=== PATIENT | male | born 1960 | race African-American/Black ===

== ENCOUNTER 2017-02-11 16:58 | Emergency (ER) | payer MEDICAID ==
[2017-02-11] MEDS ORDERED: KETOROLAC TROMETHAMINE 60 MG/2 ML SDV IM ONE (18:42)
[2017-02-11] MEDS ORDERED: OXYCODONE-ACETAMINOPHEN 5-325 MG TABLET PO ONE (18:42)
--- NOTE | 2017-02-11 19:19 | RADIOLOGY REPORT (SQ) ---
EXAM DESCRIPTION: L SPINE WHOLE COMPLETED DATE/TIME: 02/11/2017 7:10 pm REASON FOR STUDY: low back pain COMPARISON: 10/30/2014. NUMBER OF VIEWS: Five views including obliques. TECHNIQUE: AP, lateral, oblique, and sacral radiographic images acquired of the lumbar spine. LIMITATIONS: None. FINDINGS: MINERALIZATION: Normal. SEGMENTATION: Normal. No transitional anatomy. ALIGNMENT: Normal. VERTEBRAE: Maintained height. No fracture or worrisome bone lesion. DISCS: Mild disc space narrowing with small osteophytes. POSTERIOR ELEMENTS: Pedicles and facets are intact. No pars defect or posterior arch defects. HARDWARE: None in the spine. PARASPINAL SOFT TISSUES: Normal. PELVIS: Intact as visualized. No fractures or worrisome bone lesions. SI joints intact. OTHER: No other significant finding. IMPRESSION: MILD DEGENERATIVE CHANGES. NO ACUTE FINDINGS. TECHNICAL DOCUMENTATION: JOB ID: [id number]- All Rights Reserved
--- NOTE | 2017-02-11 21:14 | ER Document Report ---
ED General - General Stated Complaint: BACK PAIN Time Seen by Provider: 02/11/17 18:33 Mode of Arrival: Ambulatory Information source: Patient, Relative Notes: Patient is a 56-year-old black male comes emergency room complaining of low back pain. 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 Over the course of 24 hours he got slightly little worse and any time patient attempts to bend over or walk long periods of time or standing periods of time he has increased amount of discomfort. He also has discomfort going from laying down to sitting up. Patient denies any loss of urine or stool he has had a history of back problems in the past he was in pain management up until 2 years ago. Patient states he stopped pain management on his own because he started feeling much better. Patient denies any other medical problems with the exception of hypertension. Patient also comes in with a complaint of a rash on the left side of his body. He states that this occurred about the same time as the back and that he thought a bug bit him but it has gotten to be more painful and pruritic and is staying only on one side of the body. Patient denies having history of shingles in the past. TRAVEL OUTSIDE OF THE [place] IN LAST 30 DAYS: No - HPI Patient complains to provider of: Bug bite and back pain Onset/Duration: Sudden - week Quality of pain: Burning, Cramping, Sharp, Throbbing Severity: Moderate Pain Level: 3 Associated symptoms: Body/muscle aches Exacerbated by: Sitting, Standing, Movement, Walking Relieved by: Denies Similar symptoms previously: Yes Recently seen / treated by doctor: No - Related Data Allergies/Adverse Reactions: No Known Allergies Allergy (Verified 02/11/17 17:02) Past Medical History - General Information source: Patient, Relative - Social History Smoking Status: Current Every Day Smoker Cigarette use (# per day): Yes - 1ppd Chew tobacco use (# tins/day): No Smoking Education Provided: Yes Frequency of alcohol use: None Drug Abuse: None Lives with: Family Family History: Reviewed & Not Pertinent Patient has suicidal ideation: No Patient has homicidal ideation: No Renal/ Medical History: Denies: Hx Peritoneal Dialysis - Immunizations Hx Diphtheria, Pertussis, Tetanus Vaccination: Yes Review of Systems - Review of Systems Constitutional: No symptoms reported EENT: No symptoms reported Cardiovascular: No symptoms reported Respiratory: No symptoms reported Gastrointestinal: No symptoms reported Genitourinary: No symptoms reported Male Genitourinary: No symptoms reported Musculoskeletal: Back pain Skin: Rash Hematologic/Lymphatic: No symptoms reported Neurological/Psychological: No symptoms reported -: Yes All other systems reviewed and negative Physical Exam - Vital signs Vitals: Temp Pulse Resp BP Pulse Ox 98.8 F 87 18 134/81 H 94 02/11/17 17:06 02/11/17 17:06 02/11/17 17:06 02/11/17 17:06 02/11/17 17:06 Interpretation: Hypertensive - General General appearance: Alert - Uncomfortable appearing - Respiratory Respiratory status: No respiratory distress Chest status: Nontender Breath sounds: Normal. No: Decreased air movement, Nonproductive cough, Productive cough, Rales, Rhonchi, Stridor, Wheezing, Other - Cardiovascular Rhythm: Regular Heart sounds: Normal auscultation Murmur: No - Back Back: Normal, Tender, Vertebra tenderness, Other - Examination of the lumbar spine shows a good vascular exam. Physical testing shows reproducable tenderness to palpation around L3 L4. Good DTR's. Positive straight leg raises on left to 20 degrees right normal.. No: Nontender, Deformity/step-off, CVA tenderness, Scars, Scoliosis, Wounds - Extremities General upper extremity: Normal inspection, Normal strength General lower extremity: Normal inspection, Normal strength - Skin Skin Temperature: Warm Skin irregularity: Rash Character of irregularity: Maculopapular, Patchy, Other - Examination patient's rash on the left side of his body follows along the dermatome line. Is patchy and also has maculopapular clear clear papules. There is also areas that started to try and patient is excoriated and secondary cellulitis is also begun. Course - Vital Signs Vital signs: Temp Pulse Resp BP Pulse Ox 97.8 F 72 18 136/87 H 93 02/11/17 21:26 02/11/17 21:26 02/11/17 17:06 02/11/17 21:26 02/11/17 21:26 - Diagnostic Test Radiology reviewed: Reports reviewed - No acute findings - Transfer of Care Notes: 02/15/17 12:58 Patient appeared to have a good case of shingles left side. He has also scratched at the area and has caused a secondary infrction. Discharge - Discharge Clinical Impression: Lumbosacral strain Qualifiers: Encounter type: initial encounter Qualified Code(s): S39.012A - Strain of muscle, fascia and tendon of lower back, initial encounter Shingles Qualifiers: Herpes zoster complications: with other complications Qualified Code(s): B02.8 - Zoster with other complications Cellulitis Qualifiers: Site of cellulitis: trunk Site of cellulitis of trunk: chest wall Qualified Code(s): L03.313 - Cellulitis of chest wall Condition: Good Disposition: HOME, SELF-CARE Instructions: Ice Packs ([facility]), Low Back Pain ([facility]), Muscle Relaxers ([facility]), Muscle Strain ([facility]), Oral Narcotic Medication ([facility]), Shingles ([facility]), Warm Packs ([facility]) Additional Instructions: Home and rest. Ice to the low back 3 times a day. Medication as prescribed. He may also attempt to take ibuprofen 803 times a day with food. At this point since you have a history of low back problems I highly recommend following up with her orthopedic doctor. Since this is possibly a reoccurrence of an old injury may benefit to have a repeated MRI in the next week or so. Remember that this is low back pain and that as always if you should have any loss of feeling loss of urine or stool without trying need to return to emergency room right away. As far as the rash on the left side goes this is a classic case of shingles and with you scratching at it I believe you have gotten it infected. Will be placing you on antibiotics for this as well along with the pain medication and an antiviral to help try to make it decrease in intensity. Again should you have any concerns or problems return to ER for a repeat examination Prescriptions: Gabapentin 300 mg PO QHS #30 capsule Acyclovir [Zovirax 800 mg Tablet] 800 mg PO 5XD #50 tab Cephalexin Monohydrate [Keflex 500 mg Capsule] 500 mg PO QID #40 capsule Cyclobenzaprine HCl [Flexeril 10 mg Tablet] 10 mg PO TIDP PRN #21 tablet PRN Reason: Hydrocodone/Acetaminophen [Center 10-325 mg Tablet] 1 tab PO Q4 #20 tablet Methylprednisolone [Medrol Dosepack (4 mg/Tab) 21 Tab/Dosepak] 4 mg PO ASDIR PRN #21 tab.ds.pk PRN Reason: Referrals: LANG SHORT NP [Primary Care Provider] - Follow up as needed OLEKSANDR TOLEDO MD [ACTIVE STAFF] - Follow up as needed
[2017-02-11 21:29] VITALS: BP 136/87
== END 2017-02-11 21:25 | disposition home or self-care (01) ==
LOC: ER 16:58
DX: S39.012A Strain of muscle, fascia and tendon of lower back, initial encounter (principal); L03.313 Cellulitis of chest wall; B02.8 Zoster with other complications; X50.9XXA Other and unspecified overexertion or strenuous movements or postures, initial encounter; M54.9 Dorsalgia, unspecified; M79.1 Myalgia; F17.210 Nicotine dependence, cigarettes, uncomplicated
CPT/HCPCS: 72110; 99283